=== PATIENT | female | born 1955 | race Caucasian/White ===

== ENCOUNTER → 2017-12-08 | Outpatient (CLI) | payer MEDICARE ==
[~2017-12-08] MED LIST: IBUP600 PO; PANT20 PO; PRED5 PO; TRAZ50TA4 PO
--- NOTE | 2017-12-08 11:29 | RADRPT ---
EXAM DATE/TIME: 12/08/2017 10:01 INDICATIONS : Patient with a history of celiac artery stenosis. The patient's CT angiogram study from [facility] dated October 16, 2016 was reviewed. 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 The superior mesenteric artery is widely patent. The inferior mesenteric artery is patent. Median arcuate ligament compression is not amenable to endovascular treatment, rather plication of th e ligament surgically is required. Given that the superior mesenteric artery and inferior mesenteric artery are intact, it is felt that the likelihood of significant mesenteric vascular insufficiency is unlikely, however given that the e xamination is more than a year old, followup with repeat CTA is offered if there is high clinical bj picion of intestinal angina/mesenteric ischemia. Ideally this follow up exam would be performed at a [facility] facility for ease of access to the images and review for consideration o f treatment. Marcus Yang MD on December 08, 2017 at 11:21 Board Certified Radiologist. This report was verified electronically.
== END ==
LOC: HRAD 08:56
PROVIDERS: ATTEND Internal Medicine Gastroenterology
DX: I77.4 Celiac artery compression syndrome (principal)